=== PATIENT | male | born 1965 | race Caucasian/White ===

== ENCOUNTER 2021-04-29 18:46 | Emergency (ER) | payer OTHER ==
[~2021-04-29] VITALS: Ht 193 cm; Wt 113.4 kg
[2021-04-29 19:02] VITALS: BP 130/91
== END 2021-04-30 00:47 | disposition left against medical advice (07) ==
LOC: ER 18:46
DX: M54.2 Cervicalgia (principal); R07.9 Chest pain, unspecified; Z53.21 Procedure and treatment not carried out due to patient leaving prior to being seen by health care provider
CPT/HCPCS: 70450; 71046; 72125; 72131; 93005

== ENCOUNTER 2023-07-04 08:30 | Emergency (ER) | payer OTHER ==
[~2023-07-04] VITALS: Ht 193 cm; Wt 119.8 kg
[2023-07-04 08:53] VITALS: BP 133/94; PULSE 69; RESP 16; TEMP 97; O2SAT 98
[2023-07-04] MEDS ORDERED: TRAM50TA2 PO (09:46)
== END 2023-07-04 11:22 | disposition home or self-care (01) ==
LOC: ER 08:30
DX: M25.462 Effusion, left knee (principal)
CPT/HCPCS: 73562; 93971

== ENCOUNTER 2024-01-09 14:59 | Emergency (ER) | payer OTHER ==
[~2024-01-09] VITALS: Ht 193 cm; Wt 119.7 kg
[~2024-01-09 14:59] MED LIST: TRAM50TA2 PO
[2024-01-09 15:38] VITALS: RESP 18
[2024-01-09 17:50] VITALS: BP 162/94; PULSE 82; TEMP 97.9; O2SAT 96
== END 2024-01-09 18:08 | disposition left against medical advice (07) ==
LOC: ER 14:59
DX: M25.562 Pain in left knee (principal); Z53.21 Procedure and treatment not carried out due to patient leaving prior to being seen by health care provider